=== PATIENT | female | born 1985 | race Caucasian/White ===

== ENCOUNTER 2024-02-02 00:09 | Day surgery (SDC) | payer OTHER, SELFPAY ==
[2024-01-27 08:38] VITALS: BMI 41.6
--- NOTE | 2024-01-27 08:50 | PC.NURSE ---
Report to the Outpatient Waiting Room, entrance under the green pavilion located off [facility], at time __0830am on date __02/02/24 . Planned Procedure Time: ___100:30am .? Time changes happen often and if your time is changed the preop area will call you the afternoon before. - You and your visitor will be asked to self-screen and do not enter if you have any COVID symptoms. Please call surgeon if you need to reschedule. - A mask is optional within the hospital at this time. Patients may have clear liquids (water, carbonated beverages, clear teas, apple juice) until 3 hours prior to surgery with a maximum of 20 ounces. - No food from midnight until time of surgery and no smoking. This includes no chewing gum, candy or mints. 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 Date to take last dose___01/25/24 Please no make-up, nail swedish, hairspray, perfume, deodorant, or body powder the day of surgery.? No jewelry (including any body piercings) or valuables the day of surgery, leave them at home.? Please take a shower or bath the night before, or the morning of, surgery with an antibacterial soap.? Wear comfortable, loose fitting clothing.? - Jewelry must be removed prior to entering the operating room.? Rings and piercings that are not removed may be cut off. - The hospital will not accept responsibility for valuables.? - Please leave all valuables, including medications, at home the day of surgery. If you are going home after surgery, a licensed dedicated truck driver must drive you home.? - NO public transportation without another adult if you receive anesthesia. - We recommend that an adult stay with you for 24 hours following discharge. - We also recommend that you do not drive, make important decision, drink alcoholic beverages, or take any drugs that were not prescribed by your health care provider for at least 24 hours after your discharge time. Follow any additional instructions given to you from your surgeon. Telephone instructions given to _Patient and asked if any additional questions and then verbalized understanding. Patient advised to call surgeon office or pre surgery nurse liaison [phone] if any additional questions.
[2024-02-02] VITALS (11 sets, daily range): BP systolic 120–144; BP diastolic 74–97; PULSE 88–104; RESP 14–23; TEMP 36.5–36.6; O2SAT 94–100
--- NOTE | ~2024-02-02 | XR_ITS ---
EXAMINATION: XR surgery orthopedic DATE: 02/02/2024 12:13 INDICATION: ORIF right foot Lisfranc fracture TECHNIQUE: 3 fluoroscopic images of the left foot were obtained during procedure performed by Dr. Praneeth trujillo. Radiologist was not present for the imaging or procedure. The amount of fluoroscopy time used d uring this procedure was 0.6 minutes. Total DAP was 0.275 Gycm^2. COMPARISON: Right foot radiographs dated 01/21/2024 FINDINGS: Interval reduction and internal fixation of the fracture subluxation at the first and second tarsal m etatarsal joints. The second tarsal metatarsal joint is fixed with a dorsal plate and screws. There i s a tightrope type fixation with small metallic buttons on either side of the lucent tract which exte nds across the base of the second metatarsal and medial cuneiform. The small avulsion fracture fragme nt at the lateral margin of the medial cuneiform is unable to be clearly distinguished on the provide d images. No other fractures identified. Alignment appears near-anatomic. 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 IMPRESSION: 1. Fluoroscopy utilized during reduction internal fixation of a fracture subluxation at the first and second tarsal metatarsal joints. See procedure note for further detail. Reviewed, dictated and finalized at location A. [employer] IMPRESSION: 1. Fluoroscopy utilized during reduction internal fixation of a fracture sublux ation at the first and second tarsal metatarsal joints. See procedure note for further detail.
--- NOTE | 2024-02-02 06:48 | WPDHPUPDATE1 ---
History and Physical Update Update Date/Time: 02/02/24 06:48 History and Physical has been reviewed, including an updated exam of the patient. There are NO changes in the patient's condition. Risks, benefits, and alternatives have been discussed and questions answered. Patient agrees to proceed with procedure.
[2024-02-02] MEDS: ACETAMINOPHEN 500 MG TABLET 1000 MG PO (09:10)
[2024-02-02] MEDS: KETOROLAC 15 MG/ML VIAL (*BKC) IV PUSH (09:10)
[2024-02-02] MEDS: LACTATED RINGERS 1,000 ML 30 ML IV CONT ×2 (09:10→12:28)
--- NOTE | 2024-02-02 10:03 | WPDANESEPPF ---
Anes - Initial Pre Proc Eval Procedure: Operation Date: 02/02/24 10:30 Proposed Procedures p Open Reduction Internal Fixaton of Right Foot Lisfranc Fracture - Gary Byers MD Date/Time: 02/02/24 10:03 Surgeon: Gary Byers MD Pre Op Diagnosis: Right Foot Lisfranc Fracture dislocation Patient Data Age: 38 Gender: F Height: 1.68 m Weight: 126.2 kg Last Vital Signs Temp 97.9 F 02/02/24 09:10 Pulse 97 02/02/24 09:10 Resp 14 02/02/24 09:10 BP 141/97 H 02/02/24 09:10 Pulse Ox 99 02/02/24 09:10 O2 Del Method Room Air 02/02/24 09:10 Allergies Allergy/AdvReac Type Severity Reaction Status Date / Time No Known Allergies Allergy Verified 02/02/24 09:23 Home Medications Medication Instructions Recorded Confirmed Type L norgest/E estradiol-E estrad 1 tablet PO DAILY #91 ea 04/01/23 01/27/24 Rx 0.15 mg-30 mcg (84)/10 mcg(7) tabs,3mos (Jaimiess) albuterol sulfate 90 mcg/actuation 1 puff inhalation Q4H PRN Pain 01/20/24 01/27/24 History aerosol inhaler naproxen sodium 220 mg tablet 220 mg PO QID PRN Pain 01/20/24 01/27/24 History (Flanax (naproxen)) hydrocodone 5 mg-acetaminophen 325 1 tablet PO PRN PRN Pain 01/27/24 01/27/24 History mg tablet Patient hx anesthesia problems: none Family hx anesthesia problems: none Results Review: All pre-operative results and documents have been reviewed as part of the pre-operative evaluation. [facility] Past Medical History Medical History Abnormal Pap smear of cervix 10/25/08 lgsil +hpv; colpo 11/17/2008 benign; 06/07/09 ascus (+) hpv; 07/17/13 CHERI; 08/16/13olp bx- LGSIL, hx LEEP 09/02/13- mild dysplasia lgsil; 04/25/14 ascus neg hpv Asthma Closed fracture-dislocation of tarsometatarsal joint Dislocation of tarsometatarsal joint Fracture of second metatarsal bone of right foot Fracture of second metatarsal bone of right foot with delayed healing HPV in female Migraines Screening mammogram, encounter for Surgical History Surgical History H/O LEEP (09/02/13) LGSIL mild dysplasia History of ankle surgery (~06/1997) History of arthroscopic knee surgery (01/06/03) History of colposcopy with cervical biopsy (08/11/13) benign History of laser assisted in situ keratomileusis (08/04/07) History of tonsillectomy History of wisdom tooth extraction (~06/2002) S/P scar revision (~01/1997) Family History Family History Other Hypertension sister Grandparent Diabetes mellitus maternal grandfather paternal grandfather Unknown Asthma Heart disease Cerebrovascular accident Malignant neoplasm of prostate Lymphoma Social History Social History Smoking status: Never smoker Second hand tobacco smoke exposure: No Alcohol intake: current Alcohol use details: 1 per month Substance use: never Substance use type: does not use Do You Feel Safe in your Home?: Yes Lack of Transportation: No Lack of Food: Never True Current Housing: I Have Housing Concerned About Future Housing: No Difficulty Paying Gas/Electric Bills: No Difficulty Paying for Meds: No Currently Unemployed: No Education: High School Diploma/GED Difficulty w/ Childcare or Family Care: No Living arrangements: with family Additional living arrangements comments: parents Occupation/Education: occupation 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[employer] Gender identity (if verbalized by the patient): Female Sexual Orientation (if Verbalized by the Patient): Straight or Heterosexual Spiritual care concerns: No Anes - Eval Final PreProcedure Day of Procedure 02/02/24 10:03 Patient weight: morbidly obese Heart: regular rate and rhythm Lungs: clear to auscultation Airway: Mallampati scale class II Neurological: alert and oriented Last oral intake: >/= 8 hours ASA classification: III Emergent: no Anesthetic plan: proceed Anesthesia type and monitoring: general LMA and standard monitoring Results Review: All pre-operative results and documents have been reviewed as part of the pre-operative evaluation. Mild asthma, really RAD. Stable of recent. Informed Consent: The patient's anesthetic plan and its attendant risks and benefits were discussed with the patient/family/POA. Questions were solicited and answers provided to the satisfaction of the patient/family/POA.
[2024-02-02] MEDS: ceFAZolin 3 GM/D5W 100 ML 100 ML IVPB (10:53)
[2024-02-02] MEDS: BUPivacaine HCL 0.5% 10 ML AMP INFILTRATE (11:19)
[2024-02-02] MEDS: fentaNYL CITRATE INJ (*CRX) 100 MCG/2 ML VIAL 25 MCG IV PUSH ×8 (12:35→13:18)
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
[2024-02-02] MEDS: HYDROmorphone HCL INJ (*CRX) 1 MG/ML SYR 0.25 MG IV PUSH ×4 (13:26→13:55)
[2024-02-02] MEDS: oxyCODONE HCL (*CRX) 5 MG TAB IR PO (14:08)
== END 2024-02-02 15:03 | disposition home or self-care (01) ==
PROVIDERS: PCP Family Medicine; Visit Provider Orthopaedic Surgery
PROC: (CPT 28485; principal; 2024-02-02 10:30)
DX: S92.321A Displaced fracture of second metatarsal bone, right foot, initial encounter for closed fracture (principal); J45.909 Unspecified asthma, uncomplicated; E66.01 Morbid (severe) obesity due to excess calories; V49.60XA Unspecified car occupant injured in collision with unspecified motor vehicles in traffic accident, initial encounter; Z68.41 Body mass index [BMI] 40.0-44.9, adult; Z79.51 Long term (current) use of inhaled steroids; Z79.891 Long term (current) use of opiate analgesic; Z79.1 Long term (current) use of non-steroidal anti-inflammatories (NSAID); Z98.890 Other specified postprocedural states; Z80.42 Family history of malignant neoplasm of prostate; Z80.7 Family history of other malignant neoplasms of lymphoid, hematopoietic and related tissues; Z82.49 Family history of ischemic heart disease and other diseases of the circulatory system
CPT/HCPCS: 28615; 99199; A9270; C1713; J0690; J1100; J1171; J1885; J2003; J2250; J2405; J2704; J3010; J7120

== ENCOUNTER 2024-07-26 10:00 | Outpatient (RCR) | payer OTHER, SELFPAY ==
--- NOTE | 2024-05-31 18:09 | OPREHPOC ---
Outpatient Therapy Plan of Care This is a Multidisciplinary Plan of Care that may contain components documented by all disciplines (PT, OT, and ST.) PT Problem 1 PT Problem #1 Knowledge Deficit PT Goal 1 Goal / Goal Update [place] with HEP Target Visit 4 PT Goal 2 Goal / Goal Update Report no pain greater than 2/10 for 2 consecutive weeks Target Visit 8 PT Problem 2 PT Problem #2 Impaired Gait PT Goal 1 Goal / Goal Update Ambulate with even stride length bilaterally Target Visit 8 PT Problem 3 PT Problem #3 Impaired Range of Motion PT Goal 1 Goal / Goal Update Achieve 15 degrees of right ankle dorsiflexion to achieve terminal stance of gait Target Visit 8 PT Goal 1 Goal / Goal Update Demonstrate ability to maintain single leg stance on right foot for 15s Target Visit 8
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
--- NOTE | 2024-06-24 14:34 | OPREHPOC ---
Outpatient Therapy Plan of Care This is a Multidisciplinary Plan of Care that may contain components documented by all disciplines (PT, OT, and ST.) PT Problem 1 PT Problem #1 Knowledge Deficit PT Goal 1 Goal / Goal Update [place] with HEP 06-24-24 progress goal met continue to progress HEP Target Visit 16 PT Goal 2 Goal / Goal Update Report no pain greater than 2/10 for 2 consecutive weeks 06-24-24 progress goal not met, pain 6/10 continue toward goal Target Visit 16 PT Problem 2 PT Problem #2 Impaired Gait PT Goal 1 Goal / Goal Update Ambulate with even stride length bilaterally 06-24-24 progress goal met NEW GOAL: 1* pt ambulate 150' without limp on R LE 2* pt have good push off with R foot with 150' ambulation Target Visit 16 PT Problem 3 PT Problem #3 Impaired Range of Motion PT Goal 1 Goal / Goal Update Achieve 15 degrees of right ankle dorsiflexion to achieve terminal stance of gait 06-24-24 progress goal not met, improved to 10' continue towards goal Target Visit 16 PT Problem 4 PT Problem #4 Impaired Strength PT Goal 1 Goal / Goal Update Demonstrate ability to maintain single leg stance on right foot for 15s 06-24-24 progress goal met NEW GOAL: 1* single leg L PF x 10 reps 2* single leg L small squat x 15 reps 3* pt ambulate on treadmill 10 minutes at 1.0mph 4* pt up/down 12 steps without hand railing, indep Target Visit 16
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
--- NOTE | 2024-07-26 10:46 | OPREHPOC ---
Outpatient Therapy Plan of Care This is a Multidisciplinary Plan of Care that may contain components documented by all disciplines (PT, OT, and ST.) PT Problem 1 PT Problem #1 Knowledge Deficit PT Goal 1 Goal / Goal Update [place] with HEP 06-24-24 progress goal met continue to progress HEP 07-26-24 d/c goal met Target Visit 16 Progress Met PT Goal 2 Goal / Goal Update Report no pain greater than 2/10 for 2 consecutive weeks 06-24-24 progress goal not met, pain 6/10 continue toward goal 07-26-24 d/c goal not met, 8/10 at worst Target Visit 16 Progress Not Met PT Problem 2 PT Problem #2 Impaired Gait PT Goal 1 Goal / Goal Update Ambulate with even stride length bilaterally 06-24-24 progress goal met NEW GOAL: 1* pt ambulate 150' without limp on R LE 2* pt have good push off with R foot with 150' ambulation 07-26-24 d/c goal 2 met Target Visit 16 Progress Partially Met PT Problem 3 PT Problem #3 Impaired Range of Motion PT Goal 1 Goal / Goal Update Achieve 15 degrees of right ankle dorsiflexion to achieve terminal stance of gait 06-24-24 progress goal not met, improved to 10' continue towards goal 07-26-24 d/c goal met Target Visit 16 Progress Met PT Problem 4 PT Problem #4 Impaired Strength PT Goal 1 Goal / Goal Update Demonstrate ability to maintain single leg stance on right foot for 15s 06-24-24 progress goal met NEW GOAL: 1* single leg R PF x 10 reps 2* single leg R small squat x 15 reps 3* pt ambulate on treadmill 10 minutes at 1.0mph 4* pt up/down 12 steps without hand railing, indep 07-26-24 d/c goals met; #1 and 2- achieved with use of UEs Target Visit 16 Progress Met
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
== END 2024-07-26 13:44 | disposition home or self-care (01) ==
LOC: ANHPT 10:00
PROVIDERS: PCP Family Medicine; Visit Provider Orthopaedic Surgery
DX: S92.321A Displaced fracture of second metatarsal bone, right foot, initial encounter for closed fracture (principal)
CPT/HCPCS: 97014; 97110; 97112; 97116; 97140; 97161; 97530; G0283

== ENCOUNTER 2024-11-23 15:58 | Outpatient (CLI) | payer OTHER, SELFPAY ==
--- NOTE | ~2024-11-23 | MM_ITS ---
EXAMINATION: MM screening jeni BI w olayinka HISTORY: Screening TECHNIQUE: Craniocaudal and mediolateral oblique 3-D tomosynthesis images were obtained and synthetic 2-D images were generated. CAD analysis was submitted and interpreted. COMPARISON: No prior mammogram is available for comparison at this institution. BREAST PARENCHYMAL COMPOSITION: Not Dense: The breasts are almost entirely fatty. FINDINGS: There is no evidence of suspicious mass, calcification, or architectural distortion to suggest malignancy. There has been no suspicious interval change. IMPRESSION: 1. No mammographic evidence of malignancy. Recommend routine screening mammography in one year. BI-RADS Category 2: Benign finding(s) Reviewed, dictated and finalized at location Q. IMPRESSION: 1. No mammographic evidence of malignancy. Recommend routine screening mammogra phy in one year. BI-RADS Category 2: Benign finding(s)
== END 2024-11-23 15:59 | disposition home or self-care (01) ==
LOC: MICIMG 15:58
PROVIDERS: PCP Family Medicine; Visit Provider Obstetrics & Gynecology
DX: Z12.31 Encounter for screening mammogram for malignant neoplasm of breast (principal)
CPT/HCPCS: 77063; 77067